=== PATIENT | male | born 1940 | race African-American/Black ===

== ENCOUNTER 2017-01-08 17:01 | Emergency (ER) | payer OTHER, MEDICAID ==
[~2017-01-08] VITALS: Ht 180.3 cm; Wt 81.6 kg
[~2017-01-08 17:01] MED LIST: GABA-497 PO; LEVE500T22 PO; METF-370 PO; PANT40TA2 PO
[2017-01-08 18:52] LABS: Basophils # (auto) 0 uL; Basophils % (auto) 0.1 % (0.0-2.0); CONDITION AutoValidated; Eosinophils # (auto) 0 uL; Eosinophils % (auto) 0.6 % (0.0-7.0); Hematocrit 42.9 % (41.0-53.0); Hemoglobin 14.1 g/dL (13.5-17.5); Lymphocytes # (auto) 0.4 uL; Mean Corpuscular Hgb Conc. 32.9 g/dL (32.0-36.0); Mean Corpuscular Volume 88.1 fL (80.0-100.0); Mean Platelet Volume 9.1 fL (7.4-10.4); Monocytes # (auto) 0.6 uL; Monocytes % (auto) 7.3 % (0.0-12.0); Neutrophils # (auto) 6.9 uL; Platelet Count (auto) 163 10^3/uL (140-450); Red Cell Distribution Width 13.8 % (11.6-16.0); White Blood Cell 7.9 10^3/uL (4.4-10.8)
[2017-01-08] MEDS ORDERED: SODIUM CHLORIDE 0.9% 1,000 ML IV ONE (19:00)
[2017-01-08 19:01] LABS: Chloride 112 mmol/L (98-107); Potassium 3.6 mmol/L (3.5-5.1); Sodium 143 mmol/L (136-145)
[2017-01-08 19:08] LABS: Albumin 3.6 g/dL (3.4-5.0); Alkaline Phosphatase 61 U/L (45-117); Anion Gap 9 (5-15); Aspartate Aminotransferase 18 U/L (15-37); Bilirubin, Total 0.6 mg/dL (0.2-1.0); Blood Urea Nitrogen 14 mg/dL (7-18); Calcium 8.7 mg/dL (8.5-10.1); Carbon Dioxide 22 mmol/L (21-32); GFR African American 57 mL/min; GFR Non-African American 47 mL/min; Glucose 181 mg/dL (74-106); Magnesium 2.2 mg/dL (1.6-2.6); Total Protein 6.9 g/dL (6.4-8.2)
[2017-01-08 20:33] LABS: INR 1.05 (0.9-1.15); Prothrombin Time 11.5 sec (9.37-12.3)
[2017-01-08 21:12] VITALS: BP 118/61
== END 2017-01-08 21:15 | disposition home or self-care (01) ==
LOC: ER 17:01 → EDBD 17:01 → ER 21:15
DX: R53.1 Weakness (principal); G40.909 Epilepsy, unspecified, not intractable, without status epilepticus; E11.9 Type 2 diabetes mellitus without complications; I25.10 Atherosclerotic heart disease of native coronary artery without angina pectoris; K21.9 Gastro-esophageal reflux disease without esophagitis
CPT/HCPCS: 36415; 70450; 71010; 80053; 83735; 84484; 85025; 85610; 93005; 96360; 96361; 99285; J7030

== ENCOUNTER 2019-10-31 10:27 | Inpatient (IN) | payer OTHER, MEDICAID ==
[~2019-10-31] VITALS: Ht 177.8 cm; Wt 70.9 kg
[~2019-10-31 10:27] MED LIST changes: +ASP81EC PO; -GABA-497 PO; +GABA300C10 PO; +TAMS0.4C36 PO; +TERB250T66 PO
[2019-10-31] MEDS ORDERED: SODIUM CHLORIDE 0.9% 1,000 ML IV ONE (10:39)
[2019-10-31 11:28] LABS: Urine Amorphous Crystal FEW /hpf (None Seen); Urine Bacteria FEW /hpf (None Seen); Urine Blood 1+ /uL (Negative); Urine Mucus FEW (None Seen); Urine WBC 1 /hpf (0 - 3)
[2019-10-31 11:43] LABS: Basophils # (auto) 0 10 ^3/uL (0-0.2); Basophils % (auto) 0.3 % (0.0-2.0); Eosinophils # (auto) 0 10 ^3/uL (0-0.8); Hematocrit 38.9 % (41.0-53.0); Lymphocytes # (auto) 0.3 10 ^3/uL (0.4-5.4); Lymphocytes % (auto) 5.6 % (10.0-50.0); Mean Corpuscular Hemoglobin 29.5 pg (28.0-32.0); Mean Corpuscular Hgb Conc. 33.5 g/dL (32.0-36.0); Monocytes # (auto) 0.9 10 ^3/uL (0-1.3); Monocytes % (auto) 14.5 % (0.0-12.0); Neutrophils # (auto) 4.8 10 ^3/uL (1.6-8.6); Neutrophils % (auto) 79.6 % (37.0-80.0); Platelet Count (auto) 132 10^3/uL (140-450); Red Blood Cells 4.42 10^6/uL (4.5-5.90); Red Cell Distribution Width 14.9 % (11.8-14.3)
[2019-10-31 11:51] LABS: Alcohol, Urine < 3.0 mg/dL (0-5); Amphetamine Screen, Urine NEGATIVE (NEGATIVE); Barbiturate Scree,Urine NEGATIVE (NEGATIVE); Benzodiazephine Screen, Urine NEGATIVE (NEGATIVE); Cannabinoid Screen, Urine NEGATIVE (NEGATIVE); Cocaine Screen, Urine NEGATIVE (NEGATIVE); Opiate Scree,Urine NEGATIVE (NEGATIVE); Phencyclidine Screen, Urine NEGATIVE (NEGATIVE)
[2019-10-31 11:57] LABS: INR 1.04 (0.9-1.15); Partial Thromboplastin Time 23.2 sec (23.64-32.05)
[2019-10-31 12:09] LABS: Albumin 3.7 g/dL (3.4-5.0); Anion Gap 10 (5-15); Blood Alcohol < 3.0 mg/dL (0-5); Blood Urea Nitrogen 29 mg/dL (7-18); Calcium 9.5 mg/dL (8.5-10.1); Carbon Dioxide 23 mmol/L (21-32); Chloride 106 mmol/L (98-107); Glucose 182 mg/dL (74-106); Potassium 3.8 mmol/L (3.5-5.1); Sodium 139 mmol/L (136-145)
[2019-10-31 12:12] LABS: Lactic Acid w/Reflex 2.6 mmol/L (0.4-2.0)
[2019-10-31 12:13] LABS: Alanine Aminotransferase 33 U/L (16-61); Alkaline Phosphatase 51 U/L (45-117); Aspartate Aminotransferase 75 U/L (15-37); BUN/Creatinine Ratio 17.5; Bilirubin, Total 0.7 mg/dL (0.2-1.0); GFR African American 52 mL/min; GFR Non-African American 43 mL/min; Total Protein 7.7 g/dL (6.4-8.2)
[2019-10-31] MEDS ORDERED: POLYETHYLENE GLYCOL 17 GM PWDR PO PRN (13:00)
[2019-10-31] MEDS ORDERED: MORPHINE SULF INJ 2 MG/ML SYRINGE 1ML IV PRN (13:00)
[2019-10-31] MEDS ORDERED: NITROGLYCERIN 0.4 MG SL TAB SL PRN (13:00)
[2019-10-31] MEDS ORDERED: POLYETHYLENE GLYCOL 17 GM PWDR PO ONE (13:00)
[2019-10-31] MEDS ORDERED: PANTOPRAZOLE 40 MG TAB PO ONE (13:15)
[2019-10-31] MEDS: SODIUM CHLORIDE 0.9% 1,000 ML IV SCH (13:30)
[2019-10-31] MEDS ORDERED: DEXTROSE (50%) 50ML SYRG IV PRN (15:30)
[2019-10-31 16:39] VITALS: BP 126/78
[2019-10-31] MEDS: InsuLIN REG 1unit/0.01ml Soln (100units/ml) SC SCH ×2 (17:00→21:22)
[2019-10-31] MEDS: ACCU-CHEK COMFORT CURVE STRIP VI SCH ×2 (17:29→21:22)
[2019-10-31 17:48] VITALS: BP 110/56
[2019-10-31] MEDS: DOCUSATE SOD 100 MG CAP PO SCH (21:21)
[2019-10-31 22:00] VITALS: BP 110/60
[2019-11-01] MEDS: SODIUM CHLORIDE 0.9% 1,000 ML IV SCH ×2 (00:59→17:16)
[2019-11-01 04:14] LABS: Folate (Folic Acid) 12.56 ng/mL (5.38-24)
[2019-11-01 05:00] VITALS: BP 92/42
[2019-11-01 05:01] LABS: Basophils # (auto) 0 10 ^3/uL (0-0.2); Basophils % (auto) 0.4 % (0.0-2.0); Eosinophils # (auto) 0.2 10 ^3/uL (0-0.8); Hematocrit 29.5 % (41.0-53.0); Hemoglobin 10.1 g/dL (13.5-17.5); Lymphocytes # (auto) 0.9 10 ^3/uL (0.4-5.4); Lymphocytes % (auto) 20.3 % (10.0-50.0); Mean Corpuscular Hemoglobin 29.6 pg (28.0-32.0); Mean Corpuscular Hgb Conc. 34.4 g/dL (32.0-36.0); Mean Corpuscular Volume 85.8 fL (80.0-100.0); Monocytes # (auto) 0.5 10 ^3/uL (0-1.3); Monocytes % (auto) 12.6 % (0.0-12.0); Neutrophils # (auto) 2.7 10 ^3/uL (1.6-8.6); Neutrophils % (auto) 62.7 % (37.0-80.0); Nucleated Red Blood Cells % 0.1 %; Platelet Count (auto) 113 10^3/uL (140-450); Red Blood Cells 3.43 10^6/uL (4.5-5.90); Red Cell Distribution Width 15.1 % (11.8-14.3); White Blood Cell 4.3 10^3/uL (4.4-10.8)
[2019-11-01 05:21] LABS: BUN/Creatinine Ratio 22.2; Calcium 8.6 mg/dL (8.5-10.1); Potassium 3.9 mmol/L (3.5-5.1)
[2019-11-01] MEDS: InsuLIN REG 1unit/0.01ml Soln (100units/ml) SC SCH ×4 (06:17→22:00)
[2019-11-01] MEDS: ACCU-CHEK COMFORT CURVE STRIP VI SCH ×4 (06:18→22:00)
[2019-11-01 08:56] VITALS: BP 93/50
[2019-11-01] MEDS ORDERED: FLEET MINERAL OIL ENEMA 133 ML PR ONE (10:00)
[2019-11-01] MEDS ORDERED: BISACODYL 10 MG RECT SUPP PR ONE (10:00)
[2019-11-01] MEDS ORDERED: BISACODYL 5 MG EC TAB PO ONE (10:00)
[2019-11-01] MEDS: PANTOPRAZOLE 40 MG TAB PO SCH (10:29)
[2019-11-01] MEDS: DOCUSATE SOD 100 MG CAP PO SCH ×2 (10:29→22:00)
[2019-11-01 13:28] VITALS: BP 106/53
[2019-11-01] MEDS ORDERED: CYANOCOBALAMIN (B-12) 1000 MCG/1 ML VIAL SUBCUT ONE ×2 (15:45)
[2019-11-01 16:37] VITALS: BP 93/49
[2019-11-01 20:00] VITALS: BP 94/52
[2019-11-01 22:58] VITALS: BP 94/52
[2019-11-02 03:15] VITALS: BP 139/84
[2019-11-02 05:00] VITALS: BP 157/91
[2019-11-02] MEDS: InsuLIN REG 1unit/0.01ml Soln (100units/ml) SC SCH ×4 (05:41→22:00)
[2019-11-02] MEDS: ACCU-CHEK COMFORT CURVE STRIP VI SCH ×4 (05:41→22:00)
[2019-11-02 08:00] VITALS: BP 149/81
[2019-11-02 09:13] LABS: Basophils # (auto) 0 10 ^3/uL (0-0.2); Basophils % (auto) 0.6 % (0.0-2.0); Eosinophils # (auto) 0.1 10 ^3/uL (0-0.8); Eosinophils % (auto) 2.8 % (0.0-7.0); Hematocrit 35.6 % (41.0-53.0); Lymphocytes # (auto) 0.5 10 ^3/uL (0.4-5.4); Lymphocytes % (auto) 10.8 % (10.0-50.0); Mean Corpuscular Hemoglobin 29.5 pg (28.0-32.0); Mean Corpuscular Hgb Conc. 33.8 g/dL (32.0-36.0); Mean Corpuscular Volume 87.4 fL (80.0-100.0); Monocytes # (auto) 0.6 10 ^3/uL (0-1.3); Monocytes % (auto) 12.2 % (0.0-12.0); Neutrophils # (auto) 3.5 10 ^3/uL (1.6-8.6); Neutrophils % (auto) 73.6 % (37.0-80.0); Nucleated Red Blood Cells % 0.1 %; Platelet Count (auto) 132 10^3/uL (140-450); Red Blood Cells 4.08 10^6/uL (4.5-5.90); Red Cell Distribution Width 14.6 % (11.8-14.3); White Blood Cell 4.7 10^3/uL (4.4-10.8)
[2019-11-02 09:33] LABS: BUN/Creatinine Ratio 16.4; Calcium 9.3 mg/dL (8.5-10.1)
[2019-11-02] MEDS: DOCUSATE SOD 100 MG CAP PO SCH ×2 (10:03→22:00)
[2019-11-02] MEDS: PANTOPRAZOLE 40 MG TAB PO SCH (10:03)
[2019-11-02 17:20] VITALS: BP 145/80
[2019-11-02] MEDS: ACETAMINOPHEN 500 MG TAB PO PRN (17:41)
[2019-11-02 22:00] VITALS: BP 127/63
[2019-11-03] MEDS: ACETAMINOPHEN 500 MG TAB PO PRN (02:45)
[2019-11-03 05:00] VITALS: BP 129/67
[2019-11-03] MEDS: InsuLIN REG 1unit/0.01ml Soln (100units/ml) SC SCH ×4 (06:26→23:20)
[2019-11-03] MEDS: ACCU-CHEK COMFORT CURVE STRIP VI SCH ×4 (06:26→22:00)
[2019-11-03 09:00] VITALS: BP 144/78
[2019-11-03] MEDS: DOCUSATE SOD 100 MG CAP PO SCH ×2 (10:12→23:08)
[2019-11-03] MEDS: PANTOPRAZOLE 40 MG TAB PO SCH (10:12)
[2019-11-03] MEDS: ENOXAPARIN SOD 40 MG/0.4 ML SYRINGE SC SCH (10:12)
[2019-11-03 13:00] VITALS: BP 149/91
[2019-11-03 17:00] VITALS: BP 120/78
[2019-11-03 22:00] VITALS: BP 121/73
[2019-11-04 05:11] VITALS: BP 138/85
[2019-11-04 05:42] LABS: Urine Bacteria MANY /hpf (None Seen); Urine Blood 3+ /uL (Negative); Urine Specific Gravity 1.012 (1.001-1.035); Urine WBC 11 /hpf (0 - 3)
[2019-11-04] MEDS: ACCU-CHEK COMFORT CURVE STRIP VI SCH ×3 (06:32→16:51)
[2019-11-04] MEDS: InsuLIN REG 1unit/0.01ml Soln (100units/ml) SC SCH ×3 (06:32→16:50)
[2019-11-04] MEDS: PANTOPRAZOLE 40 MG TAB PO SCH (09:07)
[2019-11-04] MEDS: DOCUSATE SOD 100 MG CAP PO SCH (09:08)
[2019-11-04] MEDS: ENOXAPARIN SOD 40 MG/0.4 ML SYRINGE SC SCH (09:08)
[2019-11-04 09:12] VITALS: BP 149/79
[2019-11-04 09:56] LABS: Hematocrit 35.2 % (41.0-53.0); Hemoglobin 12.1 g/dL (13.5-17.5); Mean Corpuscular Hemoglobin 29.3 pg (28.0-32.0); Mean Corpuscular Hgb Conc. 34.2 g/dL (32.0-36.0); Mean Corpuscular Volume 85.5 fL (80.0-100.0); Platelet Count (auto) 130 10^3/uL (140-450); Red Blood Cells 4.12 10^6/uL (4.5-5.90); Red Cell Distribution Width 14.5 % (11.8-14.3); White Blood Cell 6.8 10^3/uL (4.4-10.8)
[2019-11-04 10:04] LABS: Basophils % (manual) 0 (0.0-2.0); Blast Cells 0; Promyelocytes % 0; Reactive Lymphocytes 0
[2019-11-04 10:31] LABS: Band Neutrophils % (manual) 2; Eosinophils % (manual) 5 (0-7); Lymphocytes % (manual) 12 (10.0-50.0); Metamyelocytes % 2; Monocytes % (manual) 9 (0-12); Myelocytes % 1
== END 2019-11-04 19:17 | DRG 70 ==
LOC: ER 10:27 → EDBD 10:27 → TELE 10:28 → TELE-EAST 14:08 → TELE-CENTR 22:32
PROVIDERS: ADMIT Nurse Practitioner Acute Care; ATTEND Internal Medicine
PROC: 0HBRXZZ Excision of Toe Nail, External Approach (ICD-10-PCS; principal; 2019-11-04)
DX: G93.41 Metabolic encephalopathy (principal); N17.0 Acute kidney failure with tubular necrosis; E11.40 Type 2 diabetes mellitus with diabetic neuropathy, unspecified; E86.0 Dehydration; D64.9 Anemia, unspecified; N18.3 Chronic kidney disease, stage 3 (moderate); B35.1 Tinea unguium; I12.9 Hypertensive chronic kidney disease with stage 1 through stage 4 chronic kidney disease, or unspecified chronic kidney disease; E11.65 Type 2 diabetes mellitus with hyperglycemia; K56.41 Fecal impaction; Z79.899 Other long term (current) drug therapy; Z79.82 Long term (current) use of aspirin; Z79.84 Long term (current) use of oral hypoglycemic drugs
CPT/HCPCS: 36415; 51702; 70450; 71045; 74176; 80048; 80053; 80307; 80320; 81001; 82306; 82607; 82746; 82962; 83036; 83605; 83735; 84425; 84443; 84484; 85007; 85025; 85027; 85048; 85610; 85730; 87040; 93005; 96360; 97163; G0378; J1815